=== PATIENT | male | born 1985 | race African-American/Black ===

== ENCOUNTER → 2019-06-03 | Outpatient (CLI) | payer OTHER | LOC: MHCPAIN 13:06 | DX: M53.3 Sacrococcygeal disorders, not elsewhere classified (principal); M54.16 Radiculopathy, lumbar region | CPT/HCPCS: G0463 ==

== ENCOUNTER → 2019-06-04 | Outpatient (CLI) | payer OTHER | LOC: MHCPAIN 12:44 | DX: M53.3 Sacrococcygeal disorders, not elsewhere classified (principal) | CPT/HCPCS: G0260; J1040; Q9967 ==